=== PATIENT | female | born 2000 | race African-American/Black ===

== ENCOUNTER 2019-10-06 12:22 | Emergency (ER) | payer OTHER ==
[~2019-10-06] VITALS: Ht 165.1 cm; Wt 90.7 kg
[2019-10-06 13:10] LABS: URINE BLOOD TRACE (Negative); URINE COLOR YELLOW; URINE GLUCOSE-RANDOM* NEGATIVE (Negative); URINE KETONES NEGATIVE (Negative); URINE NITRITE-REFLEX NEGATIVE (Negative); URINE PROTEIN (DIPSTICK) NEGATIVE (Negative); URINE SPECIFIC GRAVITY >= 1.030 (1.005-1.035); URINE UROBILINOGEN 0.2 E.U./dl (0.2-1.0)
[2019-10-06 13:11] LABS: ICTOTEST (BILI CONFIRMATORY) Negative (Negative); URINE BILIRUBIN NEGATIVE (Negative); URINE CLARITY CLOUDY; URINE LEUKOCYTES-REFLEX 2+ (Negative)
[2019-10-06 13:14] LABS: SQUAMOUS 0-3 Few /LPF (0-3); URINE RBC 0-2 Rare /HPF (0-2); URINE WBC-REFLEX 0-5 Rare /HPF (0-5)
[2019-10-06 13:15] LABS: AMORPHOUS URATES Many /LPF (None Seen); BACTERIA-REFLEX >30 Many /HPF (None Seen); CASTS None Seen /LPF (None Seen)
[2019-10-06] MEDS ORDERED: DIFLUCAN200 MG PO (16:01)
[2019-10-06] MEDS ORDERED: MACROBID 100 M100 MG PO (16:01)
[2019-10-06 16:22] VITALS: BP 115/36
== END 2019-10-06 16:20 | disposition home or self-care (01) ==
LOC: ER 12:22
PROVIDERS: Physician Assistant
DX: A54.9 Gonococcal infection, unspecified (principal); N39.0 Urinary tract infection, site not specified

== ENCOUNTER 2019-10-21 14:25 | Emergency (ER) | payer OTHER ==
[~2019-10-21] VITALS: Ht 160 cm; Wt 90.7 kg
[~2019-10-21 14:25] MED LIST: DIFLUCAN200 MG PO; MACROBID 100 M100 MG PO
[2019-10-21 16:01] LABS: URINE BILIRUBIN NEGATIVE (Negative); URINE BLOOD 2+ (Negative); URINE CLARITY CLOUDY; URINE COLOR YELLOW; URINE GLUCOSE-RANDOM* NEGATIVE (Negative); URINE KETONES NEGATIVE (Negative); URINE LEUKOCYTES-REFLEX NEGATIVE (Negative); URINE NITRITE-REFLEX NEGATIVE (Negative); URINE PROTEIN (DIPSTICK) NEGATIVE (Negative); URINE SPECIFIC GRAVITY >= 1.030 (1.005-1.035); URINE UROBILINOGEN 0.2 E.U./dl (0.2-1.0)
[2019-10-21 16:17] LABS: AMORPHOUS URATES Many /LPF (None Seen); BACTERIA-REFLEX 1-9 Few /HPF (None Seen); CASTS None Seen /LPF (None Seen); SQUAMOUS 0-3 Few /LPF (0-3); URINE RBC 0-2 Rare /HPF (0-2)
[2019-10-21 16:18] LABS: URINE WBC-REFLEX 0-5 Rare /HPF (0-5)
[2019-10-21 16:55] VITALS: BP 121/85
== END 2019-10-21 16:56 | disposition home or self-care (01) ==
LOC: ER 14:25
PROVIDERS: Physician Assistant
DX: J03.90 Acute tonsillitis, unspecified (principal)

== ENCOUNTER 2019-11-12 18:54 | Emergency (ER) | payer OTHER ==
[~2019-11-12] VITALS: Ht 160 cm; Wt 86.2 kg
[2019-11-12 19:20] LABS: URINE BILIRUBIN NEGATIVE (Negative); URINE BLOOD TRACE (Negative); URINE CLARITY CLEAR; URINE COLOR YELLOW; URINE GLUCOSE-RANDOM* NEGATIVE (Negative); URINE KETONES TRACE (Negative); URINE LEUKOCYTES-REFLEX TRACE (Negative); URINE NITRITE-REFLEX NEGATIVE (Negative); URINE PROTEIN (DIPSTICK) TRACE (Negative)
[2019-11-12 21:46] VITALS: BP 119/61
[2019-11-13] MEDS ORDERED: FLAGYL500 M1 PO (19:27)
== END 2019-11-12 20:20 | disposition home or self-care (01) ==
LOC: ER 18:54
PROVIDERS: Emergency Medicine
DX: N89.8 Other specified noninflammatory disorders of vagina (principal)

== ENCOUNTER 2019-11-13 16:32 | Emergency (ER) | payer OTHER ==
[~2019-11-13] VITALS: Ht 160 cm; Wt 86.2 kg
[2019-11-13] MEDS ORDERED: FLAGYL500 M1 PO (19:27)
[2019-11-13 19:49] VITALS: BP 132/78
== END 2019-11-13 20:45 | disposition home or self-care (01) ==
LOC: ER 16:32
DX: N89.8 Other specified noninflammatory disorders of vagina (principal); R10.30 Lower abdominal pain, unspecified

== ENCOUNTER 2020-02-17 18:30 | Emergency (ER) | payer OTHER ==
[~2020-02-17] VITALS: Ht 160 cm; Wt 89.4 kg
[~2020-02-17 18:30] MED LIST changes: +FLAGYL500 M1 PO
[2020-02-17 18:54] VITALS: BP 125/71
[2020-02-17 19:07] LABS: URINE BILIRUBIN NEGATIVE (Negative); URINE BLOOD NEGATIVE (Negative); URINE CLARITY CLEAR; URINE COLOR YELLOW; URINE GLUCOSE-RANDOM* NEGATIVE (Negative); URINE KETONES NEGATIVE (Negative); URINE LEUKOCYTES-REFLEX TRACE (Negative); URINE NITRITE-REFLEX NEGATIVE (Negative); URINE PROTEIN (DIPSTICK) NEGATIVE (Negative)
== END 2020-02-17 20:04 | disposition home or self-care (01) ==
LOC: ER 18:30
PROVIDERS: Physician Assistant
DX: N89.8 Other specified noninflammatory disorders of vagina (principal); Z20.2 Contact with and (suspected) exposure to infections with a predominantly sexual mode of transmission

== ENCOUNTER 2020-02-28 17:26 | Emergency (ER) | payer OTHER ==
[~2020-02-28] VITALS: Ht 160 cm; Wt 86.2 kg
[2020-02-28 18:00] LABS: URINE BILIRUBIN NEGATIVE (Negative); URINE BLOOD TRACE (Negative); URINE CLARITY CLEAR; URINE COLOR YELLOW; URINE GLUCOSE-RANDOM* NEGATIVE (Negative); URINE KETONES TRACE (Negative); URINE NITRITE-REFLEX NEGATIVE (Negative); URINE PROTEIN (DIPSTICK) TRACE (Negative); URINE SPECIFIC GRAVITY 1.025 (1.005-1.035)
[2020-02-28 18:03] LABS: URINE LEUKOCYTES-REFLEX 2+ (Negative)
[2020-02-28 18:10] LABS: BACTERIA-REFLEX >30 Many /HPF (None Seen); CRYSTALS None Seen /LPF (None Seen); MUCUS 4-6 Moderate strn/LPF (None Seen); SQUAMOUS >10 Many /LPF (0-3)
[2020-02-28 18:11] LABS: CASTS None Seen /LPF (None Seen); URINE WBC-REFLEX >25 Many /HPF (0-5)
[2020-02-28 18:12] LABS: URINE RBC 3-10 Few /HPF (0-2)
[2020-02-28 18:19] LABS: EOSINOPHILS 0.7 % (0.0-3.0); HEMATOCRIT 37.8 % (37.0-47.0); HEMOGLOBIN 12.5 gm/dL (12.0-15.0); LYMPHOCYTES 33.9 % (24.0-44.0); MCH 29.7 pg (26.0-34.0); MCHC 33.2 g/dL (28.0-37.0); MCV 89.6 fL (80.0-100.0); MONOCYTES 10.1 % (1.0-8.0); PLATELET COUNT 344 thou/uL (150-400); POLYS 54.3 % (36.0-66.0); RBC 4.22 mil/uL (4.20-5.00); RDW 12.7 % (10.5-14.5); WBC 7.3 thou/uL (4.0-11.0)
[2020-02-28 18:22] LABS: CALCIUM 8.9 mg/dL (8.5-10.1); CREATININE 0.7 mg/dL (0.6-1.0); POTASSIUM 3.7 mmol/L (3.5-5.1)
[2020-02-28 18:28] LABS: ALBUMIN 4.1 g/dL (3.4-5.0); TOTAL BILIRUBIN 0.4 mg/dL (<0.1-1.0); TOTAL PROTEIN 7.8 g/dL (6.4-8.2)
[2020-02-28] MEDS ORDERED: MACROBID 100 M100 MG PO (18:41)
[2020-02-28 19:17] VITALS: BP 105/66
== END 2020-02-28 19:10 | disposition home or self-care (01) ==
LOC: ER 17:26
PROVIDERS: Nurse Practitioner Family
DX: N39.0 Urinary tract infection, site not specified (principal); R11.2 Nausea with vomiting, unspecified; R10.30 Lower abdominal pain, unspecified; Z87.891 Personal history of nicotine dependence